=== PATIENT | female | born 1995 | race Two or more races ===

== ENCOUNTER 2025-09-07 08:58 | Emergency (ER) | payer OTHER ==
[~2025-09-07] VITALS: Ht 154.9 cm; Wt 92.5 kg
[2025-09-07] MEDS ORDERED: ACETAMINOPHEN 500 MG GEL..CAP PO ONE (09:45)
[2025-09-07 12:52] LABS: BASO % 0.2 % (0.1-1.2); EOS # 0.13 (0.04-0.54); EOS % 1.2 % (0.7-7.0); LYMPH # 2.17 (1.18-3.74); LYMPH % 20.2 % (19.3-53.1); MEAN PLATELET VOLUME 9.20 fl (9.4-12.4); MONO # 0.92 (0.24-0.82); MONO % 8.6 % (4.7-12.5); NEUT # 7.46 (1.56-6.13); NEUT % 69.5 % (34.0-71.1); RED CELL DISTRIBUTION WIDTH 12.2 % (11.6-14.4)
[2025-09-07 13:19] LABS: BUN CREA RATIO 22.0 (7.0-25.0); CREATININE SERUM 0.49 mg/dL (0.55-1.02); GFR 150.38; GLUCOSE FASTING 98.0 mg/dL (65-100); OSMOLALITY SERUM 284.0 MOSM/KG (275-295)
[2025-09-07 13:24] LABS: INR 0.98
[2025-09-07 14:17] LABS: URINE APPEARANCE Turbid; URINE BILIRRUBIN Negative (NEGATIVE); URINE BLOOD Small; URINE COLOR Yellow; URINE GLUCOSE Negative (NEGATIVE); URINE KETONE Negative (NEGATIVE); URINE LEUKOCYTE Negative; URINE NITRATE Negative; URINE PROTEIN Negative (NEGATIVE); URINE UROBILINOGEN 0.2 E.U./dl
[2025-09-07 14:18] LABS: URINE BACTERIA 369.5 uL (0.0-1933); URINE EPITHELIAL CELLS 26.7 uL (0.0-38.8); URINE RBC 11.2 uL (0.0-20.8); URINE WBC 4.7 uL (0.0-23.2)
[2025-09-07 14:22] LABS: URINE CAST 0.14 uL (0.0-1.40)
== END 2025-09-07 14:42 | disposition home or self-care (01) ==
LOC: ER 08:59
PROVIDERS: General Practice
DX: O20.8 Other hemorrhage in early pregnancy (principal); Z3A.01 Less than 8 weeks gestation of pregnancy

== ENCOUNTER 2025-09-08 10:23 | Emergency (ER) | payer OTHER ==
[~2025-09-08] VITALS: Ht 180.3 cm; Wt 92.5 kg
[2025-09-08] MEDS ORDERED: ONDANSETRON HCL 2 MG/ML VIAL IV ONE (11:00)
[2025-09-08] MEDS ORDERED: FAMOtidine 10 MG/ML (4ML VIAL) IV ONE (11:00)
[2025-09-08] MEDS ORDERED: MORPHINE SULFATE 4 MG/ML CARTRIDGE IV ONE (11:00)
[2025-09-08] MEDS ORDERED: ONDANSETRON HCL 2 MG/ML VIAL ONE (11:33)
[2025-09-08] MEDS ORDERED: FAMOTIDINE/PF 20 MG/2 ML VIAL ONE (11:33)
[2025-09-08 13:22] LABS: BASO % 0.3 % (0.1-1.2); EOS # 0.07 (0.04-0.54); EOS % 0.5 % (0.7-7.0); LYMPH # 1.82 (1.18-3.74); LYMPH % 13.3 % (19.3-53.1); MEAN PLATELET VOLUME 9.60 fl (9.4-12.4); MONO # 0.66 (0.24-0.82); MONO % 4.8 % (4.7-12.5); NEUT # 11.02 (1.56-6.13); NEUT % 80.8 % (34.0-71.1); RED CELL DISTRIBUTION WIDTH 12.0 % (11.6-14.4)
[2025-09-08 14:04] LABS: INR 1.01
[2025-09-08 14:19] LABS: ALT/SGPT 18.0 U/L (12-78); AST/SGOT 11.0 U/L (15-37); BILIRUBIN TOTAL 0.72 mg/dL (0.3-1.2); BUN CREA RATIO 20.0 (7.0-25.0); CREATININE SERUM 0.56 mg/dL (0.55-1.02); GFR 128.9; GLOBULINA 3.6 G/DL (2.4-3.5); GLUCOSE FASTING 101.0 mg/dL (65-100); OSMOLALITY SERUM 283.0 MOSM/KG (275-295)
[2025-09-09] MEDS ORDERED: 0.9 % SODIUM CHLORIDE 1,000 ML IV SCH (09:00)
== END 2025-09-08 14:46 | disposition home or self-care (01) ==
LOC: ER 10:23
PROVIDERS: General Practice
DX: O03.9 Complete or unspecified spontaneous abortion without complication (principal)